=== PATIENT | male | born 1945 | race Caucasian/White ===

== ENCOUNTER 2019-04-03 07:41 | Outpatient (RCR) | payer MEDICARE | END 2019-05-26 | disposition home or self-care (01) | LOC: ONC 07:41 | PROVIDERS: ATTEND Radiology Radiation Oncology | DX: Z51.0 Encounter for antineoplastic radiation therapy (principal) | CPT/HCPCS: 77290; 77300; 77301; 77334; 77336; 77338; 77386; 77470; 99214 ==

== ENCOUNTER 2019-11-25 09:36 | Outpatient (CLI) | payer MEDICARE ==
[~2019-11-25] VITALS: Ht 180 cm; Wt 71.8 kg
[2019-11-25] MEDS ORDERED: NS IV 1000 ML 1,000 ML ONE (09:50)
[2019-11-25 10:00] VITALS: BP 130/75
[2019-11-25] MEDS: NS IV 1000 ML 1,000 ML IV SCH ×2 (10:00→12:20)
[2019-11-25 10:31] LABS: BUN/CREATININE RATIO 16; CALCIUM 8.9 MG/DL (8.5-10.1); CARBON DIOXIDE 20 MMOL/L (21-32); CHLORIDE 102 MMOL/L (98-107); CREATININE SERUM 1.14 MG/DL (0.60-1.30); GFR ESTIMATED > 60; GLUCOSE 96 MG/DL (70-105); POTASSIUM 4.4 MMOL/L (3.6-5.0); SODIUM 133 MMOL/L (135-145)
[2019-11-25] MEDS ORDERED: CATHETER FLUSH 10 ML SYR IV PRN (11:15)
[2019-11-25] MEDS ORDERED: NS 100 ML (IVPB) BAG IV ONE (11:15)
[2019-11-25] MEDS ORDERED: HOLD METFORMIN - RECEIVED CONTRAST 20 ML VIAL IV SCH (11:15)
[2019-11-25] MEDS ORDERED: IOHEXOL 350 MG/ML 100 ML (OMNIPAQUE 350) VIAL IV ONE (11:15)
--- NOTE | 2019-11-25 12:50 | Diagnostic Imaging Report ---
EXAMINATION: CT Abdomen and Pelvis with intravenous contrast. TECHNIQUE: Multiple contiguous axial images were obtained through the abdomen and pelvis after the uneventful administration of intravenous contrast. All CT scans use one or more of the following dose optimizing techniques: automated exposure control, MA and/or KvP adjustment based on a patient size and exam type, or iterative reconstruction. HISTORY: Nephrectomy. Renal tumor. COMPARISON: 12/09/2018. FINDINGS: Limited views of the lower thorax show a small right pleural effusion with overlying atelectasis. The liver is normal without focal lesion. There is no biliary ductal dilation. Gallbladder is not seen. Pancreas is normal. Spleen is normal. Left adrenal gland is normal. 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 There has been a right nephrectomy. Surgical clips are seen in the retroperitoneum on the right. No soft tissue is seen in the resection bed to indicate local recurrence. Left kidney is normal. There is no hydronephrosis. Urinary bladder is normal. Visualized bowel is normal in caliber without obstruction or inflammation. There is diverticulosis without diverticulitis. No free fluid or air. No abdominal or pelvic lymphadenopathy. Aorta is normal in caliber without aneurysm. There are no suspicious osseus lesions. IMPRESSION: 1. Postsurgical changes of right adrenalectomy and nephrectomy without evidence for local recurrence or metastatic disease. 2. Small right pleural effusion with overlying atelectasis. Dictated by: Dictated on workstation # [id number]
== END 2019-11-25 13:20 | disposition home or self-care (01) ==
LOC: RAD 09:36
PROVIDERS: ATTEND Surgery Surgical Oncology
DX: C49.9 Malignant neoplasm of connective and soft tissue, unspecified (principal); D49.519 Neoplasm of unspecified behavior of unspecified kidney; E89.6 Postprocedural adrenocortical (-medullary) hypofunction; J90 Pleural effusion, not elsewhere classified; J98.11 Atelectasis; Z90.5 Acquired absence of kidney; Z98.890 Other specified postprocedural states
CPT/HCPCS: 36415; 74177; 80048; 96360; 96361

== ENCOUNTER 2019-11-30 12:12 | Outpatient (CLI) | payer MEDICARE ==
[2019-11-30] MEDS ORDERED: NS IV 1000 ML 2,000 ML ONE (12:17)
[2019-11-30 12:25] VITALS: BP 132/99
[2019-11-30] MEDS ORDERED: NS IV 1000 ML 2,000 ML IV SCH (13:00)
[2019-11-30] MEDS ORDERED: NS 100 ML (IVPB) BAG IV ONE ×2 (14:00→14:15)
[2019-11-30] MEDS ORDERED: IOHEXOL 350 MG/ML 100 ML (OMNIPAQUE 350) VIAL IV ONE ×2 (14:00→14:15)
[2019-11-30] MEDS ORDERED: HOLD METFORMIN - RECEIVED CONTRAST 20 ML VIAL IV SCH ×2 (14:00→14:15)
[2019-11-30] MEDS ORDERED: CATHETER FLUSH 10 ML SYR IV PRN (14:15)
--- NOTE | 2019-11-30 15:03 | Diagnostic Imaging Report ---
PROCEDURE: CT chest with contrast only. TECHNIQUE: Multiple contiguous axial images were obtained through the chest after administration of intravenous contrast. Auto Exposure Controls were utilized during the CT exam to meet ALARA standards for radiation dose reduction. INDICATION: Liposarcoma. COMPARISON: No previous for direct comparison study; however, correlated with an abdominal pelvic CT performed 11/25/2019. FINDINGS: Unilateral right pleural effusion showed no appreciable change from prior. Dependent consolidation of the adjacent right lower lobe posteromedially is also unchanged. The lungs otherwise clear and well-expanded. No suspicious pattern of pulmonary nodules. No thoracic lymphadenopathy. No suspicious soft tissue or osseous chest wall lesion. There is no pathological-appearing hilar or mediastinal lymph nodes. There is no pneumothorax. IMPRESSION: 1. Right pleural effusion and subjacent dependent basilar atelectasis, unchanged from recent abdominal CT. 2. No findings suggestive of pulmonary parenchymal or thoracic klaudia metastatic disease. Dictated by: Dictated on workstation # [id number]
== END 2019-11-30 15:30 | disposition home or self-care (01) ==
LOC: RAD 12:12
PROVIDERS: ATTEND Surgery Surgical Oncology
DX: C49.9 Malignant neoplasm of connective and soft tissue, unspecified (principal); J90 Pleural effusion, not elsewhere classified; J98.11 Atelectasis
CPT/HCPCS: 71260; 96360; 96361